=== PATIENT | female | born 2005 | race Caucasian/White ===

== ENCOUNTER 2023-02-05 12:54 | Outpatient (CLI) | payer BC, SELFPAY ==
--- NOTE | ~2023-02-05 | US_ITS ---
US breast BI complete DATE: 02/05/2023 13:29 INDICATION: Bilateral breast masses TECHNIQUE: Real-time and color flow imaging of both complete breasts including all 4 quadrants and crum bareolar area of each breast COMPARISON: None FINDINGS: No suspicious mass or shadowing of either breast is detected. There is a benign appearing m ass in each breast as follows: Right breast: 2:00 5 cm from nipple: Parallel circumscribed heterogeneous hypoechoic solid mass measuring 2.3 x 2.1 x 1.5 cm, with mild internal vascularity, with through transmission posterior enhancement. This is l ikely a benign fibroadenoma. Left breast: 6:00 3 cm from nipple: Parallel circumscribed hypoechoic solid lesion measuring 9.5 x 10.7 x 7.5 mm, without internal vascularity or posterior shadowing, benign in appearance, possibly fibroadenoma or h amartoma. IMPRESSION: BI-RADS Category 2: Benign Reviewed, dictated and finalized at [facility]. Reviewed, dictated and finalized at [facility]. IMPRESSION: BI-RADS Category 2: Benign
== END 2023-02-05 12:55 | disposition home or self-care (01) ==
LOC: CHSIMG 13:00
PROVIDERS: PCP Nurse Practitioner; Visit Provider Nurse Practitioner
DX: N63.15 Unspecified lump in the right breast, overlapping quadrants (principal)
CPT/HCPCS: 76641